=== PATIENT | male | born 2005 | race Caucasian/White ===

== ENCOUNTER 2023-09-06 10:30 | Emergency (ER) | payer OTHER, SELFPAY ==
--- NOTE | 2023-09-06 10:34 | DI.RAD.S_ITS ---
PROCEDURE: XR CHEST 2V INDICATIONS: chest pain TECHNIQUE: 2 views of the chest were acquired. COMPARISON: None. FINDINGS: Surgical changes and devices: None. Lungs and pleura: Lungs are clear. No pleural effusions or pneumothorax. Mediastinum: Mediastinal contours are normal. Heart size is normal. Bones and chest wall: No suspicious bony abnormalities. Soft tissues appear unremarkable. IMPRESSION: No acute cardiopulmonary abnormality is seen. Approved by: Toyin Rutledge M.D. on 09/06/2023 at 10:25
--- NOTE | 2023-09-06 10:39 | ED.GENADULT ---
HPI - General Adult General Chief complaint: Chest Pain Stated complaint: Chest pain/L side numbness/sent by nurse hotline Time Seen by Provider: 09/06/23 10:34 History of Present Illness HPI narrative: 18-year-old male with no reported past medical history presents with left-sided chest pain and left arm tingling sensation since last night around midnight. Patient states that he has a history of acid reflux but this feels different. He feels improved today, however he told other people about his chest pain and they counseled him to call the nursing hotline. The nursing hotline referred the patient to the emergency department for workup. Patient denies ever using cigarettes or cigarette smoking. Denies family history of heart disease. Review of Systems Review of Systems Narrative: Negative except as noted above Patient History Social History Smoking Status: Never smoker Exam Initial Vital Signs Initial Vital Signs: Vital Signs Temperature 98.1 F 09/06/23 10:41 Pulse Rate 48 L 09/06/23 10:41 Respiratory Rate 14 09/06/23 10:41 Blood Pressure 97/52 L 09/06/23 10:41 Pulse Oximetry 99 09/06/23 10:41 Oxygen Delivery Method Room Air 09/06/23 10:41 Const: Awake, alert, no acute distress, nontoxic appearing Cardiac: bradycardia, regular rhythm RESP: unlabored, clear bilaterally, no wheezing GI: Soft, nontender, nondistended, no rebound, no guarding MSK: Atraumatic, full range of motion, pulses equal Skin: Warm, Dry, intact, no rashes Neuro: AO x3, CN II-XII grossly intact, moves all extremities Course Orders Ordered: ED Orders 09/06/23 10:34 Chest [XR chest 2V] Stat 09/06/23 10:50 EKG-12 Lead Stat Vital Signs Vital signs: Vital Signs - 8 hr 09/06/23 10:41 Temperature 98.1 F Pulse Rate 48 L Respiratory Rate 14 Blood Pressure 97/52 L Pulse Oximetry 99 Oxygen Delivery Method Room Air Medical Decision Making Differential Diagnosis Differential Diagnosis: Heartburn, chest pain, costochondritis Imaging Data Chest x-ray: Radiologist's Impression: PROCEDURE: XR CHEST 2V INDICATIONS: chest pain TECHNIQUE: 2 views of the chest were acquired. COMPARISON: None. FINDINGS: Surgical changes and devices: None. Lungs and pleura: Lungs are clear. No pleural effusions or pneumothorax. Mediastinum: Mediastinal contours are normal. Heart size is normal. Bones and chest wall: No suspicious bony abnormalities. Soft tissues appear unremarkable. IMPRESSION: No acute cardiopulmonary abnormality is seen. Approved by: Toyin Rutledge M.D. on 09/06/2023 at 10:25 ECG Data Interpretation: Sinus bradycardia at 51 beats per minute, normal UT, normal axis, no ST T wave changes MDM Narrative Medical decision making narrative: Well-appearing patient with a 1 day of chest pain. Heart score is 0, patient is young, has no known cardiac risk factors, denies tobacco use. EKG sinus bradycardia without concerning findings. Two-view chest x-ray negative for acute findings. Patient reassessed, sitting comfortably in bed, reassurance provided. Patient counseled to use antacids such as Tums or omeprazole. Counseled to decrease caffeine, alcohol, acidic food intake PCP follow up advised. Discharge Plan Departure Patient Disposition: Home Clinical Impression: Chest pain Instructions: DI for Chest Pain Activity Restrictions/Additional Instructions: Your EKG and chest x-ray today were normal. I do not know the cause of your chest pain, but it does not appear to be a heart attack, pneumonia, or any other dangerous process at this time. Please follow up with your primary care physician. Referrals: Miscellaneous,Doctor, MD [Primary Care Provider] - Stand Alone Forms: Patient Portal/API
[2023-09-06 10:41] VITALS: BP 97/52; PULSE 48; RESP 14; TEMP 36.7; O2SAT 99; BMI 24.4
== END 2023-09-06 11:40 | disposition home or self-care (01) ==
PROVIDERS: Emergency Provider Emergency Medicine
DX: R07.9 Chest pain, unspecified (principal)
CPT/HCPCS: 71046; 93005; 99283